=== PATIENT | male | born 1945 | race Caucasian/White ===

== ENCOUNTER 2022-06-05 06:04 | Inpatient (IN) | payer OTHER ==
[~2022-06-05] VITALS: Ht 177.8 cm; Wt 101.9 kg
[2022-06-05] VITALS (11 sets, daily range): BP systolic 124–144; BP diastolic 72–94
[2022-06-05] MEDS ORDERED: CEFAZOLIN 2000 MG IV ONE (06:25)
[2022-06-05] MEDS ORDERED: VANCOMYCIN 1,500MG in NS 300 ML IVPB IV ONE (06:25)
[2022-06-05] MEDS ORDERED: DEXTROSE IV ONE (06:25)
[2022-06-05] MEDS ORDERED: DILT-36 PO (06:40)
[2022-06-05] MEDS ORDERED: CHOLECALCIFEROL PO (06:40)
[2022-06-05] MEDS ORDERED: FINA5TAB11 PO (06:40)
[2022-06-05] MEDS ORDERED: ALFU10TA10 PO (06:40)
[2022-06-05] MEDS ORDERED: APIX5TAB3 PO (06:40)
[2022-06-05] MEDS ORDERED: MULT-227 PO (06:40)
[2022-06-05 07:13] LABS: BASOPHILS % (AUTO) 0.7 % (0-1); EOSINOPHILS # (AUTO) 0.1 X10'3 (0-0.9); EOSINOPHILS % (AUTO) 2.7 % (0-6); HEMATOCRIT 36.1 % (42.0-52.0); HEMOGLOBIN 12.4 g/dl (14.0-17.9); LYMPHOCYTES # (AUTO) 1.3 X10'3 (1.1-4.8); LYMPHOCYTES % (AUTO) 27.6 % (21-51); MEAN CORPUSCULAR HEMOGLOBIN 34.3 PG (27.0-31.0); MEAN CORPUSCULAR HGB CONC 34.5 g/dL (33.0-36.5); MEAN CORPUSCULAR VOLUME 99.7 FL (78-98); MEAN PLATELET VOLUME 8.8 FL (7.4-10.4); MONOCYTES # (AUTO) 0.4 X10'3 (0-0.9); MONOCYTES % (AUTO) 8.3 % (2-12); NEUTROPHILS # (AUTO) 2.9 X10'3 (1.8-7.7); NEUTROPHILS % (AUTO) 60.7 % (42-75); PLATELET COUNT 139 X10'3 (140-440); RED BLOOD COUNT 3.62 X10'6 (4.70-6.10); RED CELL DISTRIBUTION WIDTH 13.7 % (11.5-14.5); WHITE BLOOD COUNT 4.8 X10'3 (4.5-11.0)
[2022-06-05] MEDS ORDERED: fentaNYL/PF 50MCG/1 ML 2ML syringe ONE ×2 (07:30→08:23)
[2022-06-05] MEDS ORDERED: LIDOcaine 1% 30ml preserv. free vial ONE (07:31)
[2022-06-05] MEDS ORDERED: midazolam 1 mg/ML 2ml injection ONE ×2 (07:31→08:23)
[2022-06-05] MEDS ORDERED: iohexol 350MG/ML 100ml bottle IV ONE (07:31)
[2022-06-05] MEDS ORDERED: vancomycin 1,000mg inj ONE (07:31)
[2022-06-05 07:38] LABS: ALBUMIN 3.4 G/DL (3.4-5.0); ANION GAP 10 (8-16); BLOOD UREA NITROGEN 31 MG/DL (7-18); BUN/CREATININE RATIO 27.2 (5.4-32.0); CHLORIDE 109 MMOL/L (99-107); CREATININE 1.14 MG/DL (0.60-1.10); GLUCOSE 114 MG/DL (70-104); POTASSIUM 4.1 MMOL/L (3.5-5.1); SODIUM 141 MMOL/L (135-145); TOTAL CARBON DIOXIDE 22.2 MMOL/L (24-32); eGFR 62 ML/MIN
[2022-06-05] MEDS ORDERED: heparin 1,000 UNITS/NS 500ml 500 ML ONE ×2 (07:49→07:57)
[2022-06-05] MEDS ORDERED: proCHLORperazine 10 MG/2 ml inj ONE (07:58)
[2022-06-05] MEDS: normal saline 1,000 ML IV SCH ×2 (10:10→20:10)
--- NOTE | 2022-06-05 10:35 | NUR ---
Problems reprioritized. Patient report given, questions answered & plan of care reviewed with Jose CALDERON. Discussed f/u appt with Jessica CALDERON who states she will relay information to patient. 06/18/22 at 2:[address] Camejo.
[2022-06-06 02:00] VITALS: BP 155/92
[2022-06-06] MEDS ORDERED: diltiazem 5mg/ml 5ml inj. IV ONE (06:00)
[2022-06-06 07:00] LABS: BASOPHILS % (AUTO) 0.5 % (0-1); EOSINOPHILS # (AUTO) 0.1 X10'3 (0-0.9); EOSINOPHILS % (AUTO) 1.8 % (0-6); HEMATOCRIT 38.3 % (42.0-52.0); HEMOGLOBIN 13.3 g/dl (14.0-17.9); LYMPHOCYTES # (AUTO) 1.1 X10'3 (1.1-4.8); LYMPHOCYTES % (AUTO) 14.9 % (21-51); MEAN CORPUSCULAR HEMOGLOBIN 34.8 PG (27.0-31.0); MEAN CORPUSCULAR HGB CONC 34.7 g/dL (33.0-36.5); MEAN CORPUSCULAR VOLUME 100.3 FL (78-98); MEAN PLATELET VOLUME 9.3 FL (7.4-10.4); MONOCYTES # (AUTO) 0.5 X10'3 (0-0.9); NEUTROPHILS # (AUTO) 5.4 X10'3 (1.8-7.7); NEUTROPHILS % (AUTO) 75.8 % (42-75); PLATELET COUNT 145 X10'3 (140-440); RED BLOOD COUNT 3.82 X10'6 (4.70-6.10); RED CELL DISTRIBUTION WIDTH 13.8 % (11.5-14.5); WHITE BLOOD COUNT 7.1 X10'3 (4.5-11.0)
[2022-06-06 07:11] LABS: ANION GAP 11 (8-16); BLOOD UREA NITROGEN 17 MG/DL (7-18); CHLORIDE 105 MMOL/L (99-107); CREATININE 0.92 MG/DL (0.60-1.10); GLUCOSE 106 MG/DL (70-104); POTASSIUM 3.9 MMOL/L (3.5-5.1); SODIUM 140 MMOL/L (135-145); TOTAL CARBON DIOXIDE 23.9 MMOL/L (24-32)
[2022-06-06 07:12] LABS: ALBUMIN 3.3 G/DL (3.4-5.0); BUN/CREATININE RATIO 18.5 (5.4-32.0); CALCIUM 8.2 MG/DL (8.5-10.1); eGFR 80 ML/MIN
[2022-06-06] MEDS ORDERED: diltiazem CD 180mg cap (once-daily) PO SCH (08:00)
[2022-06-06] MEDS ORDERED: multivitamins, therapeutics tablet PO SCH (08:00)
[2022-06-06] MEDS ORDERED: apixaban 5mg tablet PO SCH (08:00)
[2022-06-06] MEDS ORDERED: finasteride 5mg tablet PO SCH (08:00)
[2022-06-06] MEDS ORDERED: tamsulosin 0.4mg capsule PO SCH (08:00)
[2022-06-06] MEDS ORDERED: cholecalciferol (vitamin D3) 1,000 unit (25mcg) tablet PO SCH (08:00)
--- NOTE | 2022-06-06 13:33 | NUR ---
patient IV removed and tele box removed all questions answered. Wheeled down to Willie Hernández at the front of hospital for P/U
== END 2022-06-06 12:20 | disposition home or self-care (01) | DRG 229 ==
LOC: SSTAY O 06:04 → PCU 3S 10:13 → OBSVTOIN 10:13
PROVIDERS: ADMIT Internal Medicine Cardiovascular Disease; ATTEND Internal Medicine Cardiovascular Disease
PROC: 02HK3NZ Insertion of Intracardiac Pacemaker into Right Ventricle, Percutaneous Approach (ICD-10-PCS; principal; 2022-06-05)
DX: I48.20 Chronic atrial fibrillation, unspecified (principal); R00.1 Bradycardia, unspecified; Z00.6 Encounter for examination for normal comparison and control in clinical research program
CPT/HCPCS: 33274; 36415; 71045; 80048; 83735; 85025; 85610; 93005; 99152; 99153; A4565; A4620; A6258; C1760; C1769; C1786; C1894; G0378; J0690; J0780; J1644; J2250; J3010; J3370; J3490; J7030; J7060; Q9967